=== PATIENT | male | born 1955 | race Caucasian/White ===

== ENCOUNTER 2020-03-08 12:25 | Inpatient (IN) | payer MEDICAID, OTHER ==
[~2020-03-08] VITALS: Ht 172.7 cm; Wt 62.5 kg
[2020-03-08 13:42] LABS: Basophils # (auto) 0.1 10 ^3/uL (0-0.2); Basophils % (auto) 0.4 % (0.0-2.0); Eosinophils # (auto) 0 10 ^3/uL (0-0.8); Hematocrit 50.5 % (41.0-53.0); Hemoglobin 16.6 g/dL (13.5-17.5); Lymphocytes % (auto) 3.9 % (10.0-50.0); Mean Corpuscular Hemoglobin 31.2 pg (28.0-32.0); Mean Corpuscular Hgb Conc. 32.8 g/dL (32.0-36.0); Mean Corpuscular Volume 94.9 fL (80.0-100.0); Monocytes # (auto) 1.8 10 ^3/uL (0-1.3); Monocytes % (auto) 6.7 % (0.0-12.0); Neutrophils # (auto) 23.7 10 ^3/uL (1.6-8.6); Platelet Count (auto) 72 10^3/uL (140-450); Red Blood Cells 5.32 10^6/uL (4.5-5.90); Red Cell Distribution Width 15.2 % (11.8-14.3); White Blood Cell 26.6 10^3/uL (4.4-10.8)
[2020-03-08 14:03] LABS: Albumin 2.4 g/dL (3.4-5.0); Calcium 8.6 mg/dL (8.5-10.1); Potassium 5.3 mmol/L (3.5-5.1)
[2020-03-08 14:10] LABS: BUN/Creatinine Ratio 35.4; Bilirubin, Total 2.1 mg/dL (0.2-1.0); Total Protein 6.6 g/dL (6.4-8.2)
[2020-03-08] MEDS ORDERED: methylPREDNISolone SOD SUCC 125 MG/2 ML VL IV ONE (14:15)
[2020-03-08] MEDS ORDERED: AZITHROMYCIN 500MG/ 250ML 250 ML IV ONE (14:15)
[2020-03-08] MEDS ORDERED: FUROSEMIDE 40 MG/4 ML VIAL IV ONE (15:30)
[2020-03-08] MEDS ORDERED: SODIUM CHLORIDE 0.9% 1,000 ML IV SCH (17:00)
[2020-03-08] MEDS ORDERED: NITROGLYCERIN 0.4 MG SL TAB SL PRN (17:00)
[2020-03-08] MEDS ORDERED: DOCUSATE CALCIUM 240 MG CAP PO PRN (17:00)
[2020-03-08] MEDS ORDERED: LORazepam 0.5 MG TAB PO PRN (17:00)
[2020-03-08] MEDS ORDERED: hydrALAZINE HCL 20 MG/ML VL IV PRN (17:00)
[2020-03-08] MEDS ORDERED: MORPHINE SULF INJ 2 MG/ML SYRINGE 1ML IV PRN (17:00)
[2020-03-08] MEDS ORDERED: ACETAMINOPHEN 500 MG TAB PO PRN (17:00)
[2020-03-08 17:57] LABS: Lactate Dehydrogenase 298 U/L (87-241)
[2020-03-08 18:02] LABS: CRP High Sensitivity > 19.0 mg/dL (< 0.3)
[2020-03-08] MEDS: PIPERACILLIN-TAZOB 3.375GM 100 ML IV SCH (18:07)
[2020-03-08 20:54] LABS: Urine Bacteria NONE SEEN /hpf (None Seen); Urine Blood Negative /uL (Negative); Urine Hyaline Cast MANY /lpf (0 - 2); Urine Specific Gravity 1.014 (1.001-1.035); Urine WBC 1 /hpf (0 - 3)
[2020-03-08 22:00] VITALS: BP 109/75
[2020-03-08] MEDS ORDERED: ALBUTEROL SULF HFA 90MCG INH 200DOSE IN SCH (22:00)
[2020-03-08] MEDS ORDERED: BUDESONIDE (INHALATION) 180 MCG IH IN SCH (22:00)
[2020-03-09] VITALS (7 sets, daily range): BP systolic 99–142; BP diastolic 70–94
[2020-03-09 00:11] LABS: Potassium 4.7 mmol/L (3.5-5.1)
[2020-03-09] MEDS: PIPERACILLIN-TAZOB 3.375GM 100 ML IV SCH ×5 (00:50→23:21)
--- NOTE | 2020-03-09 05:45 | NUR ---
Transfer from [facility] Telemetry/Med-Surg Unit CASEMICHAEL admitted to Telemetry unit after SBAR received from Will RN. Patient oriented to DON FUENTES RN primary RN, unit, room, bed, and unit policies regarding patient care and visiting hours. Patient now on continuous telemetry monitoring, tele box # 69 and telemetry reading on arrival to unit is sinus rhythm at 78 beats per minute with depressed T waves. Patient weighed by bedscale and encouraged to call if they need something. All questions and concerns addressed, patient verbalized understanding. Bed in lowest locked position, side rails up x2, call light within reach. Will round every hour and as needed and continue to monitor.
[2020-03-09 06:48] LABS: Basophils # (auto) 0 10 ^3/uL (0-0.2); Basophils % (auto) 0.1 % (0.0-2.0); Eosinophils # (auto) 0 10 ^3/uL (0-0.8); Lymphocytes % (auto) 4.8 % (10.0-50.0); Mean Corpuscular Hemoglobin 31.2 pg (28.0-32.0); Mean Corpuscular Hgb Conc. 33.2 g/dL (32.0-36.0)
[2020-03-09 06:51] LABS: Hematocrit 48.6 % (41.0-53.0); Hemoglobin 16.1 g/dL (13.5-17.5); Monocytes # (auto) 0.6 10 ^3/uL (0-1.3); Monocytes % (auto) 3.3 % (0.0-12.0); Neutrophils # (auto) 18.2 10 ^3/uL (1.6-8.6); Neutrophils % (auto) 91.8 % (37.0-80.0); Nucleated Red Blood Cells % 0.2 %; Platelet Count (auto) 66 10^3/uL (140-450); Red Blood Cells 5.16 10^6/uL (4.5-5.90); Red Cell Distribution Width 15.1 % (11.8-14.3); White Blood Cell 19.8 10^3/uL (4.4-10.8)
--- NOTE | 2020-03-09 07:10 | NUR ---
Patient lying in bed, eyes closed, respirations even and unlabored, appears asleep. Patient awakens to name and touch. No s/s of distress. Will continue to monitor.
[2020-03-09 07:30] LABS: Potassium 4.6 mmol/L (3.5-5.1)
[2020-03-09 07:45] LABS: BUN/Creatinine Ratio 40.5; Calcium 8.4 mg/dL (8.5-10.1)
--- NOTE | 2020-03-09 07:45 | NUR ---
Opening Shift Note Assumed care of patient, awake and alert bed is locked and in lowest position , bed rails up x2 call light is with in reach. No S/S of distress/SOB or pain. Instructed on POC and to call for assistance PRN, will continue to monitor for changes Q1hr and PRN.
[2020-03-09 07:48] LABS: Total Protein 5.6 g/dL (6.4-8.2)
[2020-03-09] MEDS ORDERED: ASCORBIC ACID 1,000 MG TAB PO SCH (10:00)
[2020-03-09] MEDS ORDERED: ENOXAPARIN SOD 40 MG/0.4 ML SYRINGE SC SCH ×2 (10:00)
[2020-03-09] MEDS ORDERED: CHOLECALCIFEROL (VITD3) 2,000 UNIT CAP PO SCH (10:00)
[2020-03-09] MEDS ORDERED: ZINC SULFATE 220mg CAP or TAB PO SCH (10:00)
[2020-03-09] MEDS: PANTOPRAZOLE 40 MG TAB PO SCH (10:49)
[2020-03-09] MEDS: ENOXAPARIN SOD 80 MG/0.8ML SYRINGE SC ONE ×2 (13:15→13:49)
[2020-03-09] MEDS ORDERED: SODIUM CHLORIDE 0.9% 1,000 ML IV ONE (13:15)
[2020-03-09] MEDS ORDERED: VANCOMYCIN PER PHARMACY 0 MG IV SCH (13:15)
[2020-03-09] MEDS ORDERED: IOHEXOL 350 MG/ML 100ML IJ ONE (13:22)
[2020-03-09] MEDS ORDERED: ENOXAPARIN SOD 80 MG/0.8ML SYRINGE SC ONE (14:00)
[2020-03-09] MEDS: VANCOMYCIN 1GM/250ML 250 ML IV ONE ×2 (15:00→16:40)
[2020-03-09] MEDS: Ensure Enlive Strawberry 8oz Bottle PO SCH (18:00)
--- NOTE | 2020-03-09 21:08 | NUR ---
Spoke with merchandise presentation manager hospitalist MARGOTH Hebert regarding patient's ordered Lovenox for extensive blood clots. Patient's current platelet level 66. Per REHAB RN, "leave [the order] like that" for tonight's dose and confirm order in AM with dayshift Hospitalist. Read back and verified, will implement as ordered and inform dayshift RN. Will continue to monitor patient.
[2020-03-09] MEDS ORDERED: ENOXAPARIN SOD 80 MG/0.8ML SYRINGE SC SCH (22:00)
[2020-03-09] MEDS: ACETAMINOPHEN 325 MG TAB PO PRN (23:21)
[2020-03-10 05:00] VITALS: BP 111/79
[2020-03-10] MEDS: VANCOMYCIN 1GM/250ML 250 ML IV SCH ×2 (05:16→19:31)
--- NOTE | 2020-03-10 05:30 | NUR ---
COVID swab collected as ordered and walked to lab by resource SUSAN Escobar. Patient tolerated well. Will continue care.
[2020-03-10 06:02] LABS: Eosinophils # (auto) 0 10 ^3/uL (0-0.8); Hemoglobin 13.8 g/dL (13.5-17.5); Lymphocytes # (auto) 0.9 10 ^3/uL (0.4-5.4); Lymphocytes % (auto) 3.9 % (10.0-50.0)
[2020-03-10 06:04] LABS: Basophils # (auto) 0.1 10 ^3/uL (0-0.2); Basophils % (auto) 0.3 % (0.0-2.0); Hematocrit 42.5 % (41.0-53.0); Mean Corpuscular Hemoglobin 30.7 pg (28.0-32.0); Mean Corpuscular Hgb Conc. 32.4 g/dL (32.0-36.0); Mean Corpuscular Volume 94.8 fL (80.0-100.0); Monocytes # (auto) 1.3 10 ^3/uL (0-1.3); Monocytes % (auto) 5.7 % (0.0-12.0); Neutrophils # (auto) 21.2 10 ^3/uL (1.6-8.6); Neutrophils % (auto) 90.1 % (37.0-80.0); Nucleated Red Blood Cells % 0.2 %; Platelet Count (auto) 60 10^3/uL (140-450); Red Blood Cells 4.49 10^6/uL (4.5-5.90); Red Cell Distribution Width 15.3 % (11.8-14.3); White Blood Cell 23.6 10^3/uL (4.4-10.8)
[2020-03-10 06:26] LABS: BUN/Creatinine Ratio 51.3; Calcium 8.1 mg/dL (8.5-10.1)
--- NOTE | 2020-03-10 06:37 | NUR ---
Patient lying in bed, eyes closed, respirations even and unlabored, appears asleep. Patient awakens to name and touch. No s/s of distress. Will endorse care to dayshift RN.
[2020-03-10] MEDS: PIPERACILLIN-TAZOB 3.375GM 100 ML IV SCH ×3 (06:40→18:48)
--- NOTE | 2020-03-10 07:45 | NUR ---
Opening Shift Note Assumed care of patient, awake and alert bed is locked and in lowest position , bed rails up x2 , call light is with in reach. No S/S of distress/SOB or pain. Instructed on POC and to call for assistance PRN, will continue to monitor for changes Q1hr and PRN.
[2020-03-10] MEDS: Ensure Enlive Strawberry 8oz Bottle PO SCH ×3 (08:30→18:48)
[2020-03-10 09:00] VITALS: BP 136/92
[2020-03-10] MEDS: PANTOPRAZOLE 40 MG TAB PO SCH (10:03)
[2020-03-10 12:30] VITALS: BP 114/78
[2020-03-10 17:00] VITALS: BP 113/76
[2020-03-10] MEDS: APIXABAN 5 MG TAB PO SCH (21:09)
[2020-03-10 21:36] VITALS: BP 109/74
[2020-03-11] MEDS: PIPERACILLIN-TAZOB 3.375GM 100 ML IV SCH ×4 (00:32→18:06)
[2020-03-11] MEDS: ACETAMINOPHEN 325 MG TAB PO PRN ×4 (03:01→22:42)
[2020-03-11 05:00] VITALS: BP 118/80
[2020-03-11 05:49] LABS: Eosinophils # (auto) 0 10 ^3/uL (0-0.8); Neutrophils # (auto) 14.4 10 ^3/uL (1.6-8.6); Platelet Count (auto) 63 10^3/uL (140-450)
[2020-03-11 05:51] LABS: Basophils # (auto) 0 10 ^3/uL (0-0.2); Basophils % (auto) 0.3 % (0.0-2.0); Hematocrit 41.5 % (41.0-53.0); Hemoglobin 13.8 g/dL (13.5-17.5); Lymphocytes # (auto) 1.6 10 ^3/uL (0.4-5.4); Lymphocytes % (auto) 9.4 % (10.0-50.0); Mean Corpuscular Hemoglobin 31.6 pg (28.0-32.0); Mean Corpuscular Hgb Conc. 33.3 g/dL (32.0-36.0); Mean Corpuscular Volume 94.7 fL (80.0-100.0); Monocytes % (auto) 5.6 % (0.0-12.0); Neutrophils % (auto) 84.7 % (37.0-80.0); Red Blood Cells 4.39 10^6/uL (4.5-5.90); Red Cell Distribution Width 15.2 % (11.8-14.3)
[2020-03-11 06:13] LABS: Albumin 1.9 g/dL (3.4-5.0); Calcium 8.2 mg/dL (8.5-10.1); Potassium 3.5 mmol/L (3.5-5.1)
[2020-03-11 06:17] LABS: BUN/Creatinine Ratio 42.7; Total Protein 5.3 g/dL (6.4-8.2)
--- NOTE | 2020-03-11 07:45 | NUR ---
Opening Shift Note Assumed care of patient, awake and alert , bed is locked and in lowest position , bed rails up x2 , call light is within reach . No S/S of distress/SOB or pain. Instructed on POC and to call for assistance PRN, will continue to monitor for changes Q1hr and PRN.
[2020-03-11] MEDS: Ensure Enlive Strawberry 8oz Bottle PO SCH ×3 (07:57→18:06)
[2020-03-11] MEDS: VANCOMYCIN 1GM/250ML 250 ML IV SCH ×2 (09:17→22:37)
[2020-03-11 09:28] VITALS: BP 103/67
[2020-03-11] MEDS: APIXABAN 5 MG TAB PO SCH ×3 (10:10→22:38)
[2020-03-11] MEDS: PANTOPRAZOLE 40 MG TAB PO SCH (10:10)
[2020-03-11 13:00] VITALS: BP 107/80
[2020-03-11] MEDS ORDERED: MULTIPLE VITAMINS W/ MINERALS TAB PO ONE (13:15)
--- NOTE | 2020-03-11 13:55 | NUR ---
re-assessment Per consult no insurance. Patient has been assessed by Dipak Reeder of [facility]. Patients medi-celso is secure. I have provided patient with resources for [facility], Dr. Hernandez, and [facility] urgent care for follow up visits. I have provided patient with a prescription card from community assistance program. Addendum: 03/11/20 at 1356 by Danuta Thornton Amended: Links added.
--- NOTE | 2020-03-11 16:14 | NUR ---
Assessment Patient is a 64-year-old male, who is alert and oriented. Patient cognitive abilities are intact. Patient states that he can do all ADLs and ambulates independently prior to admission to [facility]. Patient states that he is employed. Patient states that he rent a room and has a roommate. Patient stated that he has no contact with his estrange family. Patient stated that he does not have transportation for discharge. Patient stated that he has a friend (Cheikh Hernandezheather no known phone number) as his support system. Patient stated that he is not receptive on receiving Advance Directive forms. Discharge planning: SW will assist with providing taxi transportation to patient post discharge. Additional post discharge needs are not determined at this moment. Addendum: 03/11/20 at 1615 by SIDNEY MAGANA Amended: Links added.
[2020-03-11 17:00] VITALS: BP 125/77
--- NOTE | 2020-03-11 18:51 | NUR ---
CLOSING SHIFT NOTE ENDORSED CARE TO DEMOLITION HAMMER OPERATOR. Addendum: 03/11/20 at 1855 by Ashlee Gallegos RN DEMOLITION HAMMER OPERATOR RN
[2020-03-11 21:28] VITALS: BP 122/79
[2020-03-12] MEDS: PIPERACILLIN-TAZOB 3.375GM 100 ML IV SCH ×5 (00:44→23:55)
[2020-03-12 05:04] VITALS: BP 132/72
[2020-03-12 06:23] LABS: Basophils # (auto) 0.1 10 ^3/uL (0-0.2); Basophils % (auto) 0.3 % (0.0-2.0); Eosinophils # (auto) 0 10 ^3/uL (0-0.8); Eosinophils % (auto) 0.1 % (0.0-7.0); Hematocrit 42.2 % (41.0-53.0); Hemoglobin 13.9 g/dL (13.5-17.5); Lymphocytes # (auto) 1.3 10 ^3/uL (0.4-5.4); Lymphocytes % (auto) 8.4 % (10.0-50.0); Mean Corpuscular Hemoglobin 31.1 pg (28.0-32.0); Mean Corpuscular Hgb Conc. 32.8 g/dL (32.0-36.0); Mean Corpuscular Volume 94.6 fL (80.0-100.0); Monocytes # (auto) 0.7 10 ^3/uL (0-1.3); Monocytes % (auto) 4.4 % (0.0-12.0); Neutrophils # (auto) 13.4 10 ^3/uL (1.6-8.6); Neutrophils % (auto) 86.8 % (37.0-80.0); Nucleated Red Blood Cells % 0.1 %; Platelet Count (auto) 66 10^3/uL (140-450); Red Blood Cells 4.47 10^6/uL (4.5-5.90); White Blood Cell 15.4 10^3/uL (4.4-10.8)
[2020-03-12 06:43] LABS: BUN/Creatinine Ratio 43.8; Calcium 8.2 mg/dL (8.5-10.1); Potassium 3.5 mmol/L (3.5-5.1)
[2020-03-12 08:00] VITALS: BP 120/83
[2020-03-12] MEDS: Ensure Enlive Strawberry 8oz Bottle PO SCH ×3 (08:00→18:15)
--- NOTE | 2020-03-12 08:00 | NUR ---
Opening Shift Note Assumed care of patient, pt is awake and A&OX4. No S/S of distress/SOB or pain. Insructed on POC and to call for assist PRN, bed is locked and in lowest position, side rails up X2, and call light within reach. Upon morning assessment, purple discoloration on left all 5 toes noted and shared with primary nurse. Will continue to monitor for changes Q1hr and PRN.
--- NOTE | 2020-03-12 08:40 | NUR ---
Pagechaitanya Carpenter MD regarding pt's L foot status. Upon assessment, purple discoloration noted to all toes, decreased pedal pulse and edema 2+ noted. Killian MENDOSA. Will continue to monitor. Addendum: 03/12/20 at 0852 by HENRIK FATIMA RN RN MD carpenter back. Requested that we complete a doppler for vascular status. Doppler noted to have strong pulse to dorsalis pedis. Pulse site marked. Will continue to monitor.
[2020-03-12 09:00] VITALS: BP 120/83
--- NOTE | 2020-03-12 09:18 | NUR ---
Dr Brown at Bedside MD to see pt. New orders for Podiatry consult for L foot. further requests that we hold the eliquis in case of possible procedure. Will implement and continue to monitor.
[2020-03-12] MEDS ORDERED: APIXABAN 5 MG TAB PO SCH (09:30)
[2020-03-12] MEDS: PANTOPRAZOLE 40 MG TAB PO SCH (09:40)
[2020-03-12 09:59] LABS: INR 2.11 (0.9-1.15); Partial Thromboplastin Time 29.3 sec (23.0-31.2)
[2020-03-12] MEDS ORDERED: MULTIPLE VITAMINS W/ MINERALS TAB PO SCH (10:00)
--- NOTE | 2020-03-12 11:38 | NUR ---
Nutrition Assessment Est energy needs [id number] kcal (25-30 kcal/kg BW 60.1kg) Est protein needs 60-72g (1-1.2g/kg BW 60.1kg r/t severe hypoalb) Will monitor and reassess prn. Addendum: 03/12/20 at [address] Amended: Links added.
[2020-03-12] MEDS: FONDAPARINUX SODIUM 7.5 MG/0.6 ML INJ SC SCH (12:01)
--- NOTE | 2020-03-12 12:11 | NUR ---
Dr Abraham at Station Updated on pt's status. No new orders at this time. Will continue to monitor.
[2020-03-12 13:00] VITALS: BP 105/79
[2020-03-12] MEDS: VANCOMYCIN 1GM/250ML 250 ML IV SCH (13:02)
[2020-03-12 16:48] VITALS: BP 116/88
--- NOTE | 2020-03-12 19:40 | NUR ---
OPENING NOTE Received report from day shift RN. Patient is A&O X's 4 with no s/s of distress noted. Patient is on RA, O2 93%. respirations are even and unlabored. Educated patient on POC and to use call light when in need of assistance and before ambulating. Patient verbalized understanding. Patient's toes on left foot to about half way up the foot has purple discoloration- the discoloration was marked where it ended on foot. Pedal pulses are weak to palpate. Marked where pulses are at. Edema +3 present to bilat lower extremities. Patient reports sensation in bilat lower extremities are good and equal. Bed is in lowest/locked position with side rails up X's 2 and call light is within reach of patient. Bed alarm is on for safety. Will continue care. Educated patient to notify me of any changes to sensation/pain/ SOB. Patient verbalized understanding.
[2020-03-12 22:00] VITALS: BP 120/87
[2020-03-13] MEDS: VANCOMYCIN 1GM/250ML 250 ML IV SCH ×2 (01:03→12:36)
[2020-03-13 05:00] VITALS: BP 112/77
[2020-03-13] MEDS: PIPERACILLIN-TAZOB 3.375GM 100 ML IV SCH ×4 (05:32→23:34)
--- NOTE | 2020-03-13 07:44 | NUR ---
Opening Note Assumed pt care from NOC RN. Pt is a/ox4 with no s/s of distress or SOB. Pt is currently sitting upright in bed with no complaints at this time. Purple/blue discoloration still present to L foot. Reference line drawn last night for closely monitoring. Discussed POC with pt and pending Podiatry consult pending. Safety measures maintained with call light within reach, bed in lowest position and side rails up. Will continue to monitor.
[2020-03-13] MEDS: Ensure Enlive Strawberry 8oz Bottle PO SCH ×3 (08:35→17:35)
[2020-03-13 09:00] VITALS: BP 114/80
[2020-03-13] MEDS: PANTOPRAZOLE 40 MG TAB PO SCH (09:13)
[2020-03-13] MEDS: FONDAPARINUX SODIUM 7.5 MG/0.6 ML INJ SC SCH (09:55)
[2020-03-13 10:03] LABS: Basophils # (auto) 0.1 10 ^3/uL (0-0.2); Basophils % (auto) 0.5 % (0.0-2.0); Eosinophils # (auto) 0 10 ^3/uL (0-0.8); Eosinophils % (auto) 0.2 % (0.0-7.0); Hematocrit 43.2 % (41.0-53.0); Hemoglobin 14.1 g/dL (13.5-17.5); Lymphocytes # (auto) 1.5 10 ^3/uL (0.4-5.4); Lymphocytes % (auto) 9.2 % (10.0-50.0); Mean Corpuscular Hemoglobin 30.6 pg (28.0-32.0); Mean Corpuscular Hgb Conc. 32.6 g/dL (32.0-36.0); Mean Corpuscular Volume 94.1 fL (80.0-100.0); Monocytes # (auto) 0.7 10 ^3/uL (0-1.3); Monocytes % (auto) 4.3 % (0.0-12.0); Neutrophils # (auto) 13.8 10 ^3/uL (1.6-8.6); Neutrophils % (auto) 85.8 % (37.0-80.0); Nucleated Red Blood Cells % 0.1 %; Platelet Count (auto) 92 10^3/uL (140-450); Red Blood Cells 4.59 10^6/uL (4.5-5.90); Red Cell Distribution Width 15.4 % (11.8-14.3); White Blood Cell 16.1 10^3/uL (4.4-10.8)
[2020-03-13 10:19] LABS: INR 1.34 (0.9-1.15); Partial Thromboplastin Time 27.8 sec (23.0-31.2)
--- NOTE | 2020-03-13 10:40 | NUR ---
Dr Smith at Bedside MD to see pt for consult. Per MD's recommendation, pt would benefit from amputation. Notified MD of pt's DVT status and anticoagulation therapy. MD made aware.
--- NOTE | 2020-03-13 10:55 | NUR ---
IV Insertion and Removal 20G inserted to pt's L FA, one attempt made. Removal of 20G to pt's R FA, catheter removed fully intact. Site is asymptomatic.
[2020-03-13 13:00] VITALS: BP 129/86
[2020-03-13] MEDS: SILDENAFIL CITRATE 20 MG TAB PO SCH ×2 (13:27→20:41)
--- NOTE | 2020-03-13 14:29 | NUR ---
Pt refused PT tx x2 today, AM & PM. Addendum: 03/13/20 at 1429 by Michael Kim MILK DRIER Amended: Links added.
[2020-03-13 17:00] VITALS: BP 113/84
--- NOTE | 2020-03-13 19:15 | NUR ---
OPENING NOTE Patient is A&O X's 4 with no s/s of distress noted. Bed in low locked position, call light within reach, siderails up x2. Patient is on RA, O2 93%. respirations are even and unlabored. Educated patient on POC and to use call light when in need of assistance and before ambulating. Patient verbalized understanding. Patient's toes on left foot to about half way up the foot has purple discoloration. Pedal pulses are weak to palpate. Edema +2 present to bilat lower extremities. Patient reports sensation in bilat lower extremities are good and equal. Bed alarm on for safety. Will continue care. Educated patient to notify me of any changes to sensation/pain/ SOB. Patient verbalized understanding.
[2020-03-13 20:52] VITALS: BP 110/68
--- NOTE | 2020-03-13 21:30 | NUR ---
Patient denies any pain right now. no needs. will continue to educate and monitor patient.
[2020-03-13 22:01] VITALS: BP 100/69
--- NOTE | 2020-03-14 01:00 | NUR ---
Called lab for vancomycin trough result. not yet available. waiting for result before hanging vanco.
[2020-03-14] MEDS: VANCOMYCIN 1GM/250ML 250 ML IV SCH ×3 (01:18→21:00)
--- NOTE | 2020-03-14 04:43 | NUR ---
Rounds Patient denies any pain, no SOB and no signs of acute distress. Will continue to monitor patient.
[2020-03-14 05:00] VITALS: BP 114/72
[2020-03-14] MEDS: PIPERACILLIN-TAZOB 3.375GM 100 ML IV SCH ×3 (06:06→17:45)
--- NOTE | 2020-03-14 07:30 | NUR ---
Opening Shift Note Assumed care of patient, awake and alert. No S/S of distress/SOB or pain. Patient left foot is being monitored for redness. Instructed on POC and to call for assist PRN, will continue to monitor for changes Q1hr and PRN. Bed is locked and in lowest position. Call light within reach.
[2020-03-14] MEDS: SILDENAFIL CITRATE 20 MG TAB PO SCH (08:20)
[2020-03-14] MEDS: Ensure Enlive Strawberry 8oz Bottle PO SCH ×3 (08:21→17:45)
[2020-03-14 08:45] VITALS: BP 105/71
[2020-03-14] MEDS: FONDAPARINUX SODIUM 7.5 MG/0.6 ML INJ SC SCH (09:33)
[2020-03-14 10:05] LABS: Basophils # (auto) 0.1 10 ^3/uL (0-0.2); Eosinophils # (auto) 0 10 ^3/uL (0-0.8); Eosinophils % (auto) 0.2 % (0.0-7.0); Hemoglobin 13.1 g/dL (13.5-17.5); Lymphocytes # (auto) 1.1 10 ^3/uL (0.4-5.4); Lymphocytes % (auto) 7.7 % (10.0-50.0); Mean Corpuscular Hemoglobin 30.7 pg (28.0-32.0); Mean Corpuscular Hgb Conc. 32.8 g/dL (32.0-36.0); Mean Corpuscular Volume 93.5 fL (80.0-100.0); Monocytes # (auto) 0.9 10 ^3/uL (0-1.3); Neutrophils # (auto) 12.2 10 ^3/uL (1.6-8.6); Neutrophils % (auto) 85.1 % (37.0-80.0); Platelet Count (auto) 115 10^3/uL (140-450); Red Blood Cells 4.28 10^6/uL (4.5-5.90); White Blood Cell 14.3 10^3/uL (4.4-10.8)
[2020-03-14] MEDS: PANTOPRAZOLE 40 MG TAB PO SCH (10:08)
[2020-03-14 10:21] LABS: Calcium 8.1 mg/dL (8.5-10.1); Potassium 3.5 mmol/L (3.5-5.1)
[2020-03-14 10:23] LABS: BUN/Creatinine Ratio 23.7
[2020-03-14] MEDS ORDERED: MULTIPLE VITAMINS W/ MINERALS TAB PO ONE (11:30)
[2020-03-14] MEDS ORDERED: SILDENAFIL CITRATE 20 MG TAB PO SCH (11:30)
--- NOTE | 2020-03-14 11:41 | NUR ---
Pt refused PT tx. He responded to encouragement to participate in gentle therapeutic exercises by reiterating his refusal. Addendum: 03/14/20 at 1145 by Michael Kim PTA Amended: Links added.
[2020-03-14 13:00] VITALS: BP 99/69
[2020-03-14 16:36] VITALS: BP 102/65
--- NOTE | 2020-03-14 19:10 | NUR ---
Opening Shift Note Assumed care of patient, awake and alertx4. unlabored breathing, resting in bed. bed in low locked position, siderails upx4, No S/S of distress/SOB or pain. Instructed on POC and to call for assist PRN, will continue to monitor for changes Q1hr and PRN.
[2020-03-14] MEDS ORDERED: VANCOMYCIN 1GM/250ML 250 ML IV SCH (21:00)
[2020-03-14] MEDS: APIXABAN 5 MG TAB PO SCH (21:36)
[2020-03-14 22:00] VITALS: BP 106/71
[2020-03-14] MEDS ORDERED: APIXABAN 5 MG TAB PO SCH (22:00)
[2020-03-14] MEDS ORDERED: APIXABAN 2.5 MG TAB PO SCH (22:00)
[2020-03-15] MEDS: PIPERACILLIN-TAZOB 3.375GM 100 ML IV SCH ×2 (00:06→05:50)
[2020-03-15 05:00] VITALS: BP 114/67
--- NOTE | 2020-03-15 05:18 | NUR ---
PATIENT DENIES ANY PAIN AND NO NEEDS RIGHT NOW. WILL CONTINUE TO MONITOR PATIENT.
--- NOTE | 2020-03-15 06:35 | NUR ---
SPOKE WITH PHARMACIST TO ADJUST VANCOMYCIN SCHEDULE SO IT WON'T CONFLICT WITH ZOSYN TIME. PHARMACIST SAID SHE WILL ADJUST IT.
[2020-03-15] MEDS ORDERED: VANCOMYCIN 1GM/250ML 250 ML IV SCH ×2 (07:00→09:00)
--- NOTE | 2020-03-15 07:30 | NUR ---
Opening Shift Note Assumed care of patient, asleep in bed. No S/S of distress/SOB or pain. Patient will be continued to monitor for changes Q1hr and PRN. Bed is locked and in lowest position. Call light within reach.
[2020-03-15] MEDS ORDERED: PIPERACILLIN-TAZOB 3.375GM 100 ML IV SCH ×4 (08:00→12:00)
[2020-03-15] MEDS: Ensure Enlive Strawberry 8oz Bottle PO SCH ×2 (08:58→12:00)
[2020-03-15] MEDS: APIXABAN 5 MG TAB PO SCH (08:59)
[2020-03-15] MEDS: PANTOPRAZOLE 40 MG TAB PO SCH (08:59)
[2020-03-15 09:10] VITALS: BP 115/65
[2020-03-15] MEDS ORDERED: MULTIPLE VITAMINS W/ MINERALS TAB PO SCH (10:00)
--- NOTE | 2020-03-15 10:04 | NUR ---
Attempted PT treatment but pt adamantly refused. Pt states "I cannot walk because of this leg." Pt was educated that hop to gait pattern with FWW was an option. Pt was also educated that scope of practice of physical therapy is not limited to ambulation training. I requested that pt perform transfer training to ensure safe transfers with wheelchair while maintaining NWB for safe discharge home. Pt's response is, "I have a big ajay who can pick me up." Pt states that this friend is a neighbor and does not live with him. I asked pt what would happen if he needs to transfer from wheelchair to toilet when he is home alone and he states that he will manage. Pt requested to be removed from PT caseload. Will discharge pt, please re-order should pt need transfer training and be willing to participate in skilled PT services.
--- NOTE | 2020-03-15 10:30 | NUR ---
DR. AMINAH BURR AT BEDSIDE TO DISCUSS POC. PATIENT HAS PENDING DISCHARGE ONCE HE OBTAINS WHEELCHAIR. STILL AWAITING FRIEND TO BRING IN DOCUMENTS FOR PATIENT TO QUALIFY FOR MEDICAL. PATIENT MEDICATION WILL BE CALLED IN TO [facility]. WILL CONTINUE TO MONITOR PATIENT.
[2020-03-15] MEDS ORDERED: LEVO750T64 PO (11:40)
[2020-03-15] MEDS ORDERED: APIX5TAB PO (11:40)
[2020-03-15 12:34] VITALS: BP 101/62
[2020-03-15 13:53] VITALS: BP 99/70
--- NOTE | 2020-03-15 13:55 | NUR ---
Nutrition Followup Note Wt 62.5 kg Pt was sleeping with no family by bedside. per records pt with PE. pt with no distress noted currently on regular diet with adequate PO of 75% x4 per RN doc along with ensure enlive TID Est energy needs [id number] kcal (25-30 kcal/kg BW 60.1kg) Est protein needs 60-72g (1-1.2g/kg BW 60.1kg r/t severe hypoalb) Will monitor and reassess prn. Labs: CA 8.1 L. rest lab wnl BM: Pt had 1 BM today per Rn note Skin: BS 20 low risk,full details in animal care specialist note PES: Altered nutrition related lab values aeb elevated BUN, severe hypoalb r/t current medical condition Comments: Will continue to monitor PO intake, skin status. F/u mod 3-5 days Rec: 1) refer to [employer] electric gas appliances demonstrator on DC 2) continue current plan of care
--- NOTE | 2020-03-15 14:48 | NUR ---
DISCHARGE PATIENT GIVEN DISCHARGE PAPERWORK, ALL QUESTIONS AND CONCERNS ANSWERED. PRESCRIPTIONS FILLED BY [facility]. VERIFIED PRESCRIPTIONS WITH [facility] PATIENT WILL BEADWORKER ON HIS WAY OUT WHEN DISCHARGED. PATIENT WHEELCHAIR AT BEDSIDE, PATIENT WILL TAKE WHEELCHAIR HOME WHEN DISCHARGED. PATIENT HAS FOLLOW UP APPOINTMENT WITH DISCHARGE CLINIC. PATIENT TELEMONITOR REMOVED AND SENT TO ICU HEART LAB. PATIENT WILL BE PICKED UP BY FRIEND. IV removal IV DC'd with clean sterile technique, catheter fully intact. Pressure dressing applied to site. Patient tolerated well.
[2020-03-17] MEDS ORDERED: APIXABAN 5 MG TAB PO SCH (22:00)
[2020-03-19] MEDS ORDERED: APIXABAN 5 MG TAB PO SCH (22:00)
== END 2020-03-15 14:51 | disposition home or self-care (01) | DRG 720 ==
LOC: ER 12:25 → EDBD 12:25 → TELE 12:26 → TELE-EAST 20:20 → TELE-WESTW 03-09 05:39
PROVIDERS: ADMIT Family Medicine; ATTEND Internal Medicine
DX: A41.9 Sepsis, unspecified organism (principal); E43 Unspecified severe protein-calorie malnutrition; I26.99 Other pulmonary embolism without acute cor pulmonale; J18.9 Pneumonia, unspecified organism; D68.59 Other primary thrombophilia; E87.1 Hypo-osmolality and hyponatremia; I31.3 Pericardial effusion (noninflammatory); I96 Gangrene, not elsewhere classified; R64 Cachexia; Z66 Do not resuscitate; D69.6 Thrombocytopenia, unspecified; E03.9 Hypothyroidism, unspecified; E78.5 Hyperlipidemia, unspecified; E87.5 Hyperkalemia; F17.210 Nicotine dependence, cigarettes, uncomplicated; I27.21 Secondary pulmonary arterial hypertension; I27.24 Chronic thromboembolic pulmonary hypertension; I50.9 Heart failure, unspecified; J43.9 Emphysema, unspecified; M71.20 Synovial cyst of popliteal space [Baker], unspecified knee; N28.9 Disorder of kidney and ureter, unspecified; Z20.828 Contact with and (suspected) exposure to other viral communicable diseases; Z91.19 Patient's noncompliance with other medical treatment and regimen; I70.0 Atherosclerosis of aorta; R94.6 Abnormal results of thyroid function studies; Z68.25 Body mass index [BMI] 25.0-25.9, adult; I82.413 Acute embolism and thrombosis of femoral vein, bilateral; I27.82 Chronic pulmonary embolism
CPT/HCPCS: 36415; 71045; 71275; 80048; 80051; 80053; 80202; 81001; 82565; 82728; 83605; 83615; 83880; 84443; 84484; 85025; 85379; 85610; 85730; 86141; 86738; 87040; 87081; 87086; 87278; 87426; 93005; 93306; 93925; 93970; 96361; 96365; 96367; 96375; G0378; J2543

== ENCOUNTER → 2020-03-26 | Emergency (ER) | payer SELFPAY ==
[~2020-03-26] VITALS: Ht 175.3 cm; Wt 72.6 kg
[~2020-03-26] MED LIST: APIX5TAB PO; DOXYCYCLINE 100MG/250ML 250 ML IV ONE; DexAMETHasone SOD PHOS 10MG/1ML VIAL INJ IV ONE; FUROSEMIDE 100 MG/10ML VIAL IV ONE; LEVO750T64 PO; MORPHINE SULF INJ 2 MG/ML SYRINGE 1ML IV PRN; NITROGLYCERIN 0.4 MG SL TAB SL PRN
[2020-03-26 15:43] VITALS: BP 150/93
[2020-03-26 17:01] LABS: Basophils # (auto) 0 10 ^3/uL (0-0.2); Basophils % (auto) 0.3 % (0.0-2.0); Eosinophils # (auto) 0 10 ^3/uL (0-0.8); Eosinophils % (auto) 0.4 % (0.0-7.0); Hematocrit 44.4 % (41.0-53.0); Hemoglobin 14.5 g/dL (13.5-17.5); Lymphocytes # (auto) 2.1 10 ^3/uL (0.4-5.4); Lymphocytes % (auto) 19.8 % (10.0-50.0); Mean Corpuscular Hemoglobin 30.3 pg (28.0-32.0); Mean Corpuscular Hgb Conc. 32.7 g/dL (32.0-36.0); Mean Corpuscular Volume 92.6 fL (80.0-100.0); Monocytes % (auto) 9.5 % (0.0-12.0); Neutrophils # (auto) 7.4 10 ^3/uL (1.6-8.6); Nucleated Red Blood Cells % 0.1 %; Platelet Count (auto) 183 10^3/uL (140-450); Red Blood Cells 4.79 10^6/uL (4.5-5.90); Red Cell Distribution Width 15.8 % (11.8-14.3); White Blood Cell 10.6 10^3/uL (4.4-10.8)
[2020-03-26 17:05] LABS: Albumin 2.4 g/dL (3.4-5.0); BUN/Creatinine Ratio 20.5; Potassium 3.8 mmol/L (3.5-5.1)
[2020-03-26 17:08] LABS: Bilirubin, Total 0.9 mg/dL (0.2-1.0); Total Protein 7.1 g/dL (6.4-8.2)
== END | disposition home or self-care (01) ==
LOC: EDUNIT# 14:49 → EDBD 14:55 → ER 14:55
DX: J18.8 Other pneumonia, unspecified organism (principal)
CPT/HCPCS: 36415; 71045; 80053; 85025; 85379; 93005; 99285; J1100

== ENCOUNTER 2020-04-02 12:16 | Inpatient (IN) | payer MEDICAID, OTHER ==
[~2020-04-02] VITALS: Ht 177.8 cm; Wt 62.2 kg
[2020-04-02] MEDS: VANCOMYCIN 750mg/250ml 250 ML IV SCH (06:00)
[~2020-04-02 12:16] MED LIST changes: -DOXYCYCLINE 100MG/250ML 250 ML IV ONE; -DexAMETHasone SOD PHOS 10MG/1ML VIAL INJ IV ONE; -FUROSEMIDE 100 MG/10ML VIAL IV ONE; -MORPHINE SULF INJ 2 MG/ML SYRINGE 1ML IV PRN; -NITROGLYCERIN 0.4 MG SL TAB SL PRN
[2020-04-02 15:42] LABS: Basophils # (auto) 0.1 10 ^3/uL (0-0.2); Basophils % (auto) 0.4 % (0.0-2.0); Eosinophils # (auto) 0 10 ^3/uL (0-0.8); Eosinophils % (auto) 0.1 % (0.0-7.0); Hematocrit 40.2 % (41.0-53.0); Hemoglobin 13.1 g/dL (13.5-17.5); Lymphocytes # (auto) 2.1 10 ^3/uL (0.4-5.4); Lymphocytes % (auto) 16.1 % (10.0-50.0); Mean Corpuscular Hemoglobin 30.1 pg (28.0-32.0); Mean Corpuscular Hgb Conc. 32.6 g/dL (32.0-36.0); Mean Corpuscular Volume 92.1 fL (80.0-100.0); Monocytes # (auto) 0.8 10 ^3/uL (0-1.3); Monocytes % (auto) 6.2 % (0.0-12.0); Neutrophils # (auto) 10.3 10 ^3/uL (1.6-8.6); Neutrophils % (auto) 77.2 % (37.0-80.0); Nucleated Red Blood Cells % 0.1 %; Platelet Count (auto) 72 10^3/uL (140-450); Red Blood Cells 4.37 10^6/uL (4.5-5.90); Red Cell Distribution Width 16.3 % (11.8-14.3); White Blood Cell 13.3 10^3/uL (4.4-10.8)
[2020-04-02 15:57] LABS: BUN/Creatinine Ratio 13.1; Calcium 8.1 mg/dL (8.5-10.1); Potassium 3.1 mmol/L (3.5-5.1)
[2020-04-02 16:01] LABS: Albumin 2.1 g/dL (3.4-5.0); Bilirubin, Total 1.1 mg/dL (0.2-1.0); Total Protein 6.2 g/dL (6.4-8.2)
[2020-04-02] MEDS ORDERED: PIPERACILLIN-TAZOB 3.375GM 100 ML IV ONE (16:15)
[2020-04-02] MEDS ORDERED: CLINDAMYCIN 600MG IV 50 ML IV ONE (16:15)
[2020-04-02 17:59] LABS: INR 1.33 (0.9-1.15)
[2020-04-02] MEDS ORDERED: NITROGLYCERIN 0.4 MG SL TAB SL PRN (18:45)
[2020-04-02] MEDS ORDERED: MORPHINE SULF INJ 2 MG/ML SYRINGE 1ML IV PRN (18:45)
[2020-04-02] MEDS ORDERED: ONDANSETRON HCL 4 MG/2 ML VIAL IV PRN (18:45)
[2020-04-02] MEDS ORDERED: ACETAMINOPHEN 500 MG TAB PO PRN ×2 (18:45)
[2020-04-02] MEDS ORDERED: VANCOMYCIN PER PHARMACY 0 MG IV SCH (18:45)
[2020-04-02] MEDS ORDERED: D5W/SOD CHL 0.9%/KCL 40MEQ 1,000 ML IV ONE (19:00)
[2020-04-02 19:09] LABS: Magnesium 2.1 mg/dL (1.6-2.6)
[2020-04-02] MEDS: PIPERACILLIN-TAZOB 3.375GM 100 ML IV SCH (19:11)
[2020-04-02] MEDS ORDERED: ASCORBIC ACID 1,000 MG TAB PO ONE (19:15)
[2020-04-02] MEDS ORDERED: ZINC SULFATE 220mg CAP or TAB PO ONE (19:15)
[2020-04-02] MEDS ORDERED: CHOLECALCIFEROL (VITD3) 2,000 UNIT CAP PO ONE (19:15)
[2020-04-02 19:17] LABS: CRP High Sensitivity 10.1 mg/dL (< 0.3)
[2020-04-02] MEDS: ALBUTEROL SULF HFA 90MCG INH 200DOSE IN SCH (22:00)
[2020-04-02] MEDS: APIXABAN 5 MG TAB PO SCH (22:00)
[2020-04-03] MEDS: VANCOMYCIN 750mg/250ml 250 ML IV SCH ×3 (05:00→21:00)
[2020-04-03 05:07] LABS: Basophils # (auto) 0 10 ^3/uL (0-0.2); Basophils % (auto) 0.2 % (0.0-2.0); Eosinophils # (auto) 0 10 ^3/uL (0-0.8); Eosinophils % (auto) 0.4 % (0.0-7.0); Hemoglobin 13.1 g/dL (13.5-17.5); Lymphocytes # (auto) 2.1 10 ^3/uL (0.4-5.4); Lymphocytes % (auto) 18.8 % (10.0-50.0); Mean Corpuscular Hemoglobin 29.3 pg (28.0-32.0); Mean Corpuscular Hgb Conc. 31.9 g/dL (32.0-36.0); Mean Corpuscular Volume 91.7 fL (80.0-100.0); Monocytes # (auto) 0.8 10 ^3/uL (0-1.3); Monocytes % (auto) 7.3 % (0.0-12.0); Neutrophils # (auto) 8.4 10 ^3/uL (1.6-8.6); Neutrophils % (auto) 73.3 % (37.0-80.0); Nucleated Red Blood Cells % 0.2 %; Platelet Count (auto) 75 10^3/uL (140-450); Red Blood Cells 4.47 10^6/uL (4.5-5.90); Red Cell Distribution Width 16.2 % (11.8-14.3); White Blood Cell 11.4 10^3/uL (4.4-10.8)
[2020-04-03 05:29] LABS: Albumin 2.1 g/dL (3.4-5.0); Calcium 8.2 mg/dL (8.5-10.1); Potassium 3.3 mmol/L (3.5-5.1)
[2020-04-03 05:34] LABS: BUN/Creatinine Ratio 16.7; Bilirubin, Total 1.2 mg/dL (0.2-1.0); Total Protein 5.8 g/dL (6.4-8.2)
[2020-04-03] MEDS: ALBUTEROL SULF HFA 90MCG INH 200DOSE IN SCH ×2 (06:00→14:00)
[2020-04-03] MEDS: PIPERACILLIN-TAZOB 3.375GM 100 ML IV SCH ×4 (06:56→21:43)
[2020-04-03] MEDS: ZINC SULFATE 220mg CAP or TAB PO SCH (10:00)
[2020-04-03] MEDS: FAMOTIDINE 20 MG TAB PO SCH (10:00)
[2020-04-03] MEDS: APIXABAN 5 MG TAB PO SCH (10:00)
[2020-04-03] MEDS: CHOLECALCIFEROL (VITD3) 2,000 UNIT CAP PO SCH (10:00)
[2020-04-03] MEDS: ASCORBIC ACID 1,000 MG TAB PO SCH (10:00)
[2020-04-03] MEDS: Ensure Enlive Strawberry 8oz Bottle PO SCH (18:22)
[2020-04-03] MEDS: ENOXAPARIN SOD 100 MG/1 ML SYRINGE SC SCH (22:00)
[2020-04-04] MEDS: PIPERACILLIN-TAZOB 3.375GM 100 ML IV SCH ×4 (01:11→20:48)
[2020-04-04 06:04] LABS: Basophils # (auto) 0 10 ^3/uL (0-0.2); Basophils % (auto) 0.4 % (0.0-2.0); Eosinophils # (auto) 0 10 ^3/uL (0-0.8); Eosinophils % (auto) 0.2 % (0.0-7.0); Hematocrit 42.5 % (41.0-53.0); Hemoglobin 13.7 g/dL (13.5-17.5); Lymphocytes # (auto) 2.3 10 ^3/uL (0.4-5.4); Lymphocytes % (auto) 18.1 % (10.0-50.0); Mean Corpuscular Hemoglobin 29.8 pg (28.0-32.0); Mean Corpuscular Hgb Conc. 32.3 g/dL (32.0-36.0); Mean Corpuscular Volume 92.2 fL (80.0-100.0); Monocytes # (auto) 0.9 10 ^3/uL (0-1.3); Monocytes % (auto) 7.6 % (0.0-12.0); Neutrophils # (auto) 9.2 10 ^3/uL (1.6-8.6); Neutrophils % (auto) 73.7 % (37.0-80.0); Nucleated Red Blood Cells % 0.1 %; Platelet Count (auto) 91 10^3/uL (140-450); Red Blood Cells 4.61 10^6/uL (4.5-5.90); Red Cell Distribution Width 16.6 % (11.8-14.3); White Blood Cell 12.5 10^3/uL (4.4-10.8)
[2020-04-04 06:12] LABS: Calcium 8.2 mg/dL (8.5-10.1); Potassium 3.1 mmol/L (3.5-5.1)
[2020-04-04 06:16] LABS: BUN/Creatinine Ratio 11.5
[2020-04-04] MEDS: ENOXAPARIN SOD 100 MG/1 ML SYRINGE SC SCH (10:00)
[2020-04-04] MEDS: CHOLECALCIFEROL (VITD3) 2,000 UNIT CAP PO SCH (10:00)
[2020-04-04] MEDS: ASCORBIC ACID 1,000 MG TAB PO SCH (10:00)
[2020-04-04] MEDS: ZINC SULFATE 220mg CAP or TAB PO SCH (10:06)
[2020-04-04] MEDS: Ensure Enlive Strawberry 8oz Bottle PO SCH ×3 (10:06→18:58)
[2020-04-04] MEDS: FAMOTIDINE 20 MG TAB PO SCH (10:07)
[2020-04-04] MEDS: VANCOMYCIN 750mg/250ml 250 ML IV SCH ×2 (10:21→18:40)
[2020-04-04] MEDS: ENOXAPARIN SOD 60 MG/0.6 ML SYRINGE SC SCH (22:50)
[2020-04-05] MEDS: VANCOMYCIN 750mg/250ml 250 ML IV SCH ×3 (01:32→17:15)
[2020-04-05 01:37] VITALS: BP 128/81
[2020-04-05] MEDS: MORPHINE SULF INJ 2 MG/ML SYRINGE 1ML IV PRN ×2 (01:54→20:53)
[2020-04-05 02:11] VITALS: BP 128/81
[2020-04-05 05:00] VITALS: BP_SYST 112; BP_SYST 122; BP_DIAS 77; BP_DIAS 88
[2020-04-05] MEDS: PIPERACILLIN-TAZOB 3.375GM 100 ML IV SCH ×3 (05:02→18:26)
[2020-04-05] MEDS: ZINC SULFATE 220mg CAP or TAB PO SCH (07:55)
[2020-04-05] MEDS: ASCORBIC ACID 1,000 MG TAB PO SCH (07:55)
[2020-04-05] MEDS: CHOLECALCIFEROL (VITD3) 2,000 UNIT CAP PO SCH (07:56)
[2020-04-05 08:10] LABS: Basophils # (auto) 0.1 10 ^3/uL (0-0.2); Basophils % (auto) 0.6 % (0.0-2.0); Eosinophils # (auto) 0 10 ^3/uL (0-0.8); Eosinophils % (auto) 0.3 % (0.0-7.0); Hematocrit 37.8 % (41.0-53.0); Hemoglobin 12.2 g/dL (13.5-17.5); Lymphocytes # (auto) 3.1 10 ^3/uL (0.4-5.4); Mean Corpuscular Hemoglobin 29.2 pg (28.0-32.0); Mean Corpuscular Hgb Conc. 32.3 g/dL (32.0-36.0); Mean Corpuscular Volume 90.6 fL (80.0-100.0); Monocytes # (auto) 0.8 10 ^3/uL (0-1.3); Monocytes % (auto) 6.1 % (0.0-12.0); Neutrophils # (auto) 9.4 10 ^3/uL (1.6-8.6); Platelet Count (auto) 92 10^3/uL (140-450); Red Blood Cells 4.18 10^6/uL (4.5-5.90); Red Cell Distribution Width 16.6 % (11.8-14.3); White Blood Cell 13.4 10^3/uL (4.4-10.8)
[2020-04-05 08:36] LABS: BUN/Creatinine Ratio 20.8; Potassium 3.4 mmol/L (3.5-5.1)
[2020-04-05 09:00] VITALS: BP 110/80
[2020-04-05] MEDS ORDERED: POTASSIUM CHL 20 Meq TABLET PO ONE (11:15)
[2020-04-05] MEDS: Ensure Enlive Strawberry 8oz Bottle PO SCH ×3 (11:46→18:16)
[2020-04-05] MEDS: ENOXAPARIN SOD 60 MG/0.6 ML SYRINGE SC SCH ×2 (11:47→22:00)
[2020-04-05] MEDS: FAMOTIDINE 20 MG TAB PO SCH (11:47)
[2020-04-05 13:00] VITALS: BP 101/73
[2020-04-05 17:30] VITALS: BP 127/82
[2020-04-06] MEDS: PIPERACILLIN-TAZOB 3.375GM 100 ML IV SCH ×5 (02:10→23:24)
[2020-04-06] MEDS: VANCOMYCIN 750mg/250ml 250 ML IV SCH ×3 (02:10→17:31)
[2020-04-06 05:00] VITALS: BP 134/90
[2020-04-06] MEDS: CHOLECALCIFEROL (VITD3) 2,000 UNIT CAP PO SCH (07:20)
[2020-04-06] MEDS: ASCORBIC ACID 1,000 MG TAB PO SCH (07:20)
[2020-04-06 08:06] LABS: Basophils # (auto) 0 10 ^3/uL (0-0.2); Basophils % (auto) 0.2 % (0.0-2.0); Eosinophils # (auto) 0.1 10 ^3/uL (0-0.8); Eosinophils % (auto) 0.5 % (0.0-7.0); Hematocrit 36.5 % (41.0-53.0); Hemoglobin 11.6 g/dL (13.5-17.5); Lymphocytes # (auto) 2.9 10 ^3/uL (0.4-5.4); Lymphocytes % (auto) 21.3 % (10.0-50.0); Mean Corpuscular Hemoglobin 28.9 pg (28.0-32.0); Mean Corpuscular Hgb Conc. 31.8 g/dL (32.0-36.0); Mean Corpuscular Volume 90.9 fL (80.0-100.0); Monocytes # (auto) 0.8 10 ^3/uL (0-1.3); Neutrophils # (auto) 9.7 10 ^3/uL (1.6-8.6); Nucleated Red Blood Cells % 0.1 %; Platelet Count (auto) 98 10^3/uL (140-450); Red Blood Cells 4.01 10^6/uL (4.5-5.90); Red Cell Distribution Width 16.3 % (11.8-14.3); White Blood Cell 13.5 10^3/uL (4.4-10.8)
[2020-04-06 08:26] LABS: INR 1.15 (0.9-1.15); Partial Thromboplastin Time 27.7 sec (23.0-31.2)
[2020-04-06 08:31] LABS: Potassium 3.4 mmol/L (3.5-5.1)
[2020-04-06 08:41] LABS: BUN/Creatinine Ratio 19.4; Calcium 7.9 mg/dL (8.5-10.1)
[2020-04-06 09:00] VITALS: BP 118/75
[2020-04-06 10:22] LABS: Magnesium 2.2 mg/dL (1.6-2.6); Phosphorus 2.7 mg/dL (2.5-4.90)
[2020-04-06] MEDS: FAMOTIDINE 20 MG TAB PO SCH (10:22)
[2020-04-06] MEDS: POTASSIUM CHL 20 Meq TABLET PO SCH (10:23)
[2020-04-06] MEDS: ENOXAPARIN SOD 60 MG/0.6 ML SYRINGE SC SCH ×2 (10:23→21:17)
[2020-04-06] MEDS: Ensure Enlive Strawberry 8oz Bottle PO SCH ×3 (10:23→17:58)
[2020-04-06] MEDS: HYDROcodone-ACET 5/325MG TAB PO PRN (10:31)
[2020-04-06 12:58] VITALS: BP 95/54
[2020-04-06 17:00] VITALS: BP 132/62
[2020-04-06 21:45] VITALS: BP 115/79
[2020-04-07] MEDS: VANCOMYCIN 750mg/250ml 250 ML IV SCH ×3 (01:49→19:52)
[2020-04-07 04:49] LABS: Basophils # (auto) 0.1 10 ^3/uL (0-0.2); Basophils % (auto) 0.5 % (0.0-2.0); Eosinophils # (auto) 0.1 10 ^3/uL (0-0.8); Eosinophils % (auto) 0.5 % (0.0-7.0); Hematocrit 36.9 % (41.0-53.0); Lymphocytes # (auto) 3.1 10 ^3/uL (0.4-5.4); Lymphocytes % (auto) 21.9 % (10.0-50.0); Mean Corpuscular Hemoglobin 29.5 pg (28.0-32.0); Mean Corpuscular Hgb Conc. 32.6 g/dL (32.0-36.0); Mean Corpuscular Volume 90.6 fL (80.0-100.0); Monocytes % (auto) 7.2 % (0.0-12.0); Neutrophils # (auto) 9.9 10 ^3/uL (1.6-8.6); Neutrophils % (auto) 69.9 % (37.0-80.0); Nucleated Red Blood Cells % 0.1 %; Platelet Count (auto) 119 10^3/uL (140-450); Red Blood Cells 4.07 10^6/uL (4.5-5.90); Red Cell Distribution Width 16.3 % (11.8-14.3); White Blood Cell 14.1 10^3/uL (4.4-10.8)
[2020-04-07 05:07] LABS: BUN/Creatinine Ratio 22.1; Calcium 8.1 mg/dL (8.5-10.1); Potassium 3.7 mmol/L (3.5-5.1)
[2020-04-07 05:20] VITALS: BP 126/89
[2020-04-07] MEDS: PIPERACILLIN-TAZOB 3.375GM 100 ML IV SCH ×4 (05:28→23:25)
[2020-04-07] MEDS: HYDROcodone-ACET 5/325MG TAB PO PRN ×2 (05:34→21:58)
[2020-04-07 08:00] VITALS: BP 103/72
[2020-04-07] MEDS: Ensure Enlive Strawberry 8oz Bottle PO SCH ×3 (08:00→18:00)
[2020-04-07] MEDS: FAMOTIDINE 20 MG TAB PO SCH (10:16)
[2020-04-07] MEDS: POTASSIUM CHL 20 Meq TABLET PO SCH (10:17)
[2020-04-07 12:00] VITALS: BP 105/67
[2020-04-07 16:00] VITALS: BP 111/84
[2020-04-07 23:05] VITALS: BP 119/80
[2020-04-08] VITALS (7 sets, daily range): BP systolic 111–126; BP diastolic 75–88
[2020-04-08] MEDS: PIPERACILLIN-TAZOB 3.375GM 100 ML IV SCH ×3 (05:34→18:50)
[2020-04-08] MEDS: VANCOMYCIN 750mg/250ml 250 ML IV SCH ×2 (05:41→17:00)
[2020-04-08 07:12] LABS: Basophils # (auto) 0 10 ^3/uL (0-0.2)
[2020-04-08 07:20] LABS: Basophils % (auto) 0.4 % (0.0-2.0); Eosinophils # (auto) 0.1 10 ^3/uL (0-0.8); Eosinophils % (auto) 0.6 % (0.0-7.0); Hematocrit 40.6 % (41.0-53.0); Hemoglobin 12.1 g/dL (13.5-17.5); Lymphocytes # (auto) 2.1 10 ^3/uL (0.4-5.4); Lymphocytes % (auto) 19.5 % (10.0-50.0); Mean Corpuscular Hemoglobin 29.5 pg (28.0-32.0); Mean Corpuscular Hgb Conc. 29.7 g/dL (32.0-36.0); Mean Corpuscular Volume 99.4 fL (80.0-100.0); Monocytes # (auto) 0.7 10 ^3/uL (0-1.3); Monocytes % (auto) 6.2 % (0.0-12.0); Neutrophils # (auto) 8.1 10 ^3/uL (1.6-8.6); Neutrophils % (auto) 73.3 % (37.0-80.0); Nucleated Red Blood Cells % 0.2 %; Platelet Count (auto) 104 10^3/uL (140-450); Red Blood Cells 4.08 10^6/uL (4.5-5.90); Red Cell Distribution Width 18.2 % (11.8-14.3)
[2020-04-08 07:25] LABS: INR 1.32 (0.9-1.15); Partial Thromboplastin Time 22.2 sec (23.0-31.2)
[2020-04-08 07:40] LABS: Potassium 4.8 mmol/L (3.5-5.1)
[2020-04-08 07:46] LABS: BUN/Creatinine Ratio 20.6; Calcium 8.1 mg/dL (8.5-10.1)
[2020-04-08] MEDS: Ensure Enlive Strawberry 8oz Bottle PO SCH ×3 (08:05→18:50)
[2020-04-08] MEDS: FAMOTIDINE 20 MG TAB PO SCH (09:05)
[2020-04-08] MEDS: POTASSIUM CHL 20 Meq TABLET PO SCH (09:05)
[2020-04-08] MEDS ORDERED: TETRACAINE 1% INJ 2 ML VIAL IJ ONE (09:59)
[2020-04-08] MEDS ORDERED: POVIDONE IODINE 10 % TOPICAL OINT 30GM TOP ONE (09:59)
[2020-04-08] MEDS ORDERED: fentaNYL CITRATE 100 MCG/2 ML VL ONE (11:00)
[2020-04-08] MEDS ORDERED: MIDAZOLAM HCL 1MG/1ML-2 ML VIAL ONE (11:00)
[2020-04-08] MEDS ORDERED: DexAMETHasone SOD PHOS 10MG/1ML VIAL INJ ONE (11:50)
[2020-04-08] MEDS ORDERED: PROPOFOL 10 MG/ML 20 ML IV ONE (11:59)
[2020-04-08] MEDS ORDERED: MIDAZOLAM HCL 1MG/1ML-2 ML VIAL IV PRN (12:30)
[2020-04-08] MEDS ORDERED: ePHEDrine SULFATE 50 MG/ML AMP IV PRN (12:30)
[2020-04-08] MEDS ORDERED: LABETALOL HCL 5 MG/ML 4ML SYRINGE IV PRN (12:30)
[2020-04-08] MEDS ORDERED: ONDANSETRON HCL 4 MG/2 ML VIAL IV PRN (12:30)
[2020-04-08] MEDS ORDERED: MORPHINE SULFATE 4 MG/ML SYR/VIAL IV PRN (12:30)
[2020-04-08] MEDS ORDERED: ALBUTEROL SULF 2.5 MG/0.5ML(0.5%) NEB SOLN NEB ONE (13:00)
[2020-04-08] MEDS ORDERED: IPRATROPIUM BROM 0.5 MG/2.5ML INH SOL NEB ONE (13:00)
[2020-04-08] MEDS: ALBUTEROL SULF 2.5 MG/0.5ML(0.5%) NEB SOLN NEB SCH ×2 (18:00→21:55)
[2020-04-08] MEDS: IPRATROPIUM BROM 0.5 MG/2.5ML INH SOL NEB SCH ×2 (18:00→21:55)
[2020-04-08] MEDS: HYDROcodone-ACET 5/325MG TAB PO PRN (19:05)
[2020-04-08] MEDS: BUDESONIDE (INHALATION) 0.5 MG/2 ML NEB NEB SCH (21:55)
[2020-04-09] MEDS: PIPERACILLIN-TAZOB 3.375GM 100 ML IV SCH ×4 (00:35→17:30)
[2020-04-09] MEDS: VANCOMYCIN 750mg/250ml 250 ML IV SCH ×3 (02:08→22:41)
[2020-04-09 05:00] VITALS: BP 125/81
[2020-04-09] MEDS: IPRATROPIUM BROM 0.5 MG/2.5ML INH SOL NEB SCH ×4 (06:40→23:17)
[2020-04-09] MEDS: BUDESONIDE (INHALATION) 0.5 MG/2 ML NEB NEB SCH ×2 (06:41→20:10)
[2020-04-09] MEDS: ALBUTEROL SULF 2.5 MG/0.5ML(0.5%) NEB SOLN NEB SCH ×4 (06:41→23:17)
[2020-04-09 08:30] VITALS: BP 148/88
[2020-04-09 09:00] VITALS: BP 148/88
[2020-04-09] MEDS: FAMOTIDINE 20 MG TAB PO SCH (09:09)
[2020-04-09] MEDS: Ensure Enlive Strawberry 8oz Bottle PO SCH ×3 (09:09→18:30)
[2020-04-09] MEDS: POTASSIUM CHL 20 Meq TABLET PO SCH (09:09)
[2020-04-09 09:32] LABS: Basophils # (auto) 0 10 ^3/uL (0-0.2); Basophils % (auto) 0.1 % (0.0-2.0); Eosinophils # (auto) 0 10 ^3/uL (0-0.8); Hematocrit 34.6 % (41.0-53.0); Hemoglobin 11.3 g/dL (13.5-17.5); Lymphocytes # (auto) 1.1 10 ^3/uL (0.4-5.4); Lymphocytes % (auto) 7.6 % (10.0-50.0); Mean Corpuscular Hemoglobin 29.3 pg (28.0-32.0); Mean Corpuscular Hgb Conc. 32.7 g/dL (32.0-36.0); Mean Corpuscular Volume 89.7 fL (80.0-100.0); Monocytes % (auto) 6.7 % (0.0-12.0); Neutrophils # (auto) 12.7 10 ^3/uL (1.6-8.6); Neutrophils % (auto) 85.6 % (37.0-80.0); Nucleated Red Blood Cells % 0.1 %; Platelet Count (auto) 158 10^3/uL (140-450); Red Blood Cells 3.85 10^6/uL (4.5-5.90); Red Cell Distribution Width 16.1 % (11.8-14.3); White Blood Cell 14.9 10^3/uL (4.4-10.8)
[2020-04-09 10:36] LABS: Albumin 1.6 g/dL (3.4-5.0); BUN/Creatinine Ratio 20.8; Bilirubin, Total 0.8 mg/dL (0.2-1.0); Calcium 8.1 mg/dL (8.5-10.1); Total Protein 5.6 g/dL (6.4-8.2)
[2020-04-09 12:00] VITALS: BP 107/71
[2020-04-09] MEDS: HYDROcodone-ACET 5/325MG TAB PO PRN (12:47)
[2020-04-09 16:30] VITALS: BP 110/69
[2020-04-09 22:00] VITALS: BP 123/77
[2020-04-10] MEDS: PIPERACILLIN-TAZOB 3.375GM 100 ML IV SCH ×3 (06:00→13:05)
[2020-04-10] MEDS: IPRATROPIUM BROM 0.5 MG/2.5ML INH SOL NEB SCH ×4 (07:25→23:22)
[2020-04-10] MEDS: ALBUTEROL SULF 2.5 MG/0.5ML(0.5%) NEB SOLN NEB SCH ×4 (07:26→23:22)
[2020-04-10 07:50] LABS: Basophils # (auto) 0 10 ^3/uL (0-0.2); Eosinophils # (auto) 0 10 ^3/uL (0-0.8); Hematocrit 30.2 % (41.0-53.0); Hemoglobin 9.8 g/dL (13.5-17.5); Lymphocytes # (auto) 2.4 10 ^3/uL (0.4-5.4); Lymphocytes % (auto) 16.8 % (10.0-50.0); Mean Corpuscular Hemoglobin 29.3 pg (28.0-32.0); Mean Corpuscular Hgb Conc. 32.3 g/dL (32.0-36.0); Mean Corpuscular Volume 90.7 fL (80.0-100.0); Monocytes % (auto) 6.9 % (0.0-12.0); Neutrophils # (auto) 10.9 10 ^3/uL (1.6-8.6); Neutrophils % (auto) 76.3 % (37.0-80.0); Nucleated Red Blood Cells % 0.1 %; Platelet Count (auto) 124 10^3/uL (140-450); Red Blood Cells 3.33 10^6/uL (4.5-5.90); Red Cell Distribution Width 17.2 % (11.8-14.3); White Blood Cell 14.2 10^3/uL (4.4-10.8)
[2020-04-10 08:05] VITALS: BP 125/86
[2020-04-10] MEDS: Ensure Enlive Strawberry 8oz Bottle PO SCH ×3 (08:05→18:10)
[2020-04-10] MEDS: VANCOMYCIN 750mg/250ml 250 ML IV SCH (08:05)
[2020-04-10 09:00] VITALS: BP 125/86
[2020-04-10] MEDS: POTASSIUM CHL 20 Meq TABLET PO SCH (09:25)
[2020-04-10] MEDS: FAMOTIDINE 20 MG TAB PO SCH (09:25)
[2020-04-10] MEDS: BUDESONIDE (INHALATION) 0.5 MG/2 ML NEB NEB SCH ×2 (11:32→19:11)
[2020-04-10 13:00] VITALS: BP 120/76
[2020-04-10 17:21] VITALS: BP 148/94
[2020-04-10] MEDS: CLINDAMYCIN HCL 150 MG CAP PO SCH (21:41)
[2020-04-10 22:00] VITALS: BP 134/83
[2020-04-10] MEDS ORDERED: VANCOMYCIN 750mg/250ml 250 ML IV SCH (22:00)
[2020-04-11 05:03] VITALS: BP 133/71
[2020-04-11] MEDS: CLINDAMYCIN HCL 150 MG CAP PO SCH ×3 (05:58→23:38)
[2020-04-11 06:50] LABS: Basophils # (auto) 0 10 ^3/uL (0-0.2); Basophils % (auto) 0.1 % (0.0-2.0); Eosinophils # (auto) 0.1 10 ^3/uL (0-0.8); Eosinophils % (auto) 1.1 % (0.0-7.0); Hemoglobin 10.2 g/dL (13.5-17.5); Lymphocytes # (auto) 2.8 10 ^3/uL (0.4-5.4); Lymphocytes % (auto) 21.9 % (10.0-50.0); Mean Corpuscular Hemoglobin 29.2 pg (28.0-32.0); Mean Corpuscular Hgb Conc. 31.9 g/dL (32.0-36.0); Mean Corpuscular Volume 91.4 fL (80.0-100.0); Monocytes % (auto) 8.3 % (0.0-12.0); Neutrophils # (auto) 8.7 10 ^3/uL (1.6-8.6); Neutrophils % (auto) 68.6 % (37.0-80.0); Nucleated Red Blood Cells % 0.1 %; Platelet Count (auto) 121 10^3/uL (140-450); Red Cell Distribution Width 16.7 % (11.8-14.3); White Blood Cell 12.6 10^3/uL (4.4-10.8)
[2020-04-11] MEDS: IPRATROPIUM BROM 0.5 MG/2.5ML INH SOL NEB SCH ×2 (07:36→12:08)
[2020-04-11] MEDS: ALBUTEROL SULF 2.5 MG/0.5ML(0.5%) NEB SOLN NEB SCH ×2 (07:36→12:08)
[2020-04-11] MEDS: BUDESONIDE (INHALATION) 0.5 MG/2 ML NEB NEB SCH ×2 (07:36→22:44)
[2020-04-11 08:00] VITALS: BP 150/97
[2020-04-11] MEDS: Ensure Enlive Strawberry 8oz Bottle PO SCH ×3 (08:00→18:00)
[2020-04-11 09:00] VITALS: BP 150/97
[2020-04-11] MEDS: FAMOTIDINE 20 MG TAB PO SCH (10:49)
[2020-04-11] MEDS: POTASSIUM CHL 20 Meq TABLET PO SCH (10:49)
[2020-04-11 13:00] VITALS: BP 137/72
[2020-04-11 16:49] VITALS: BP 140/87
[2020-04-11] MEDS ORDERED: ALBUTEROL SULF 2.5 MG/0.5ML(0.5%) NEB SOLN NEB SCH (20:00)
[2020-04-11 22:00] VITALS: BP 137/85
[2020-04-11] MEDS ORDERED: IPRATROPIUM BROM 0.5 MG/2.5ML INH SOL NEB SCH (22:00)
[2020-04-12] VITALS (7 sets, daily range): BP systolic 107–137; BP diastolic 71–85
[2020-04-12] MEDS: CLINDAMYCIN HCL 150 MG CAP PO SCH ×3 (05:53→23:45)
[2020-04-12] MEDS: Ensure Enlive Strawberry 8oz Bottle PO SCH ×3 (08:20→18:44)
[2020-04-12] MEDS: APIXABAN 5 MG TAB PO SCH ×2 (10:30→23:46)
[2020-04-12] MEDS: POTASSIUM CHL 20 Meq TABLET PO SCH (10:44)
[2020-04-12] MEDS: FAMOTIDINE 20 MG TAB PO SCH (10:45)
[2020-04-12] MEDS: HYDROcodone-ACET 5/325MG TAB PO PRN (23:46)
[2020-04-13 05:40] VITALS: BP 115/79
[2020-04-13] MEDS: CLINDAMYCIN HCL 150 MG CAP PO SCH ×3 (06:06→23:20)
[2020-04-13] MEDS: Ensure Enlive Strawberry 8oz Bottle PO SCH ×3 (08:22→17:44)
[2020-04-13 09:00] VITALS: BP 144/93
[2020-04-13] MEDS: APIXABAN 5 MG TAB PO SCH ×2 (09:30→23:20)
[2020-04-13] MEDS: FAMOTIDINE 20 MG TAB PO SCH (09:31)
[2020-04-13] MEDS: POTASSIUM CHL 20 Meq TABLET PO SCH (09:31)
[2020-04-13 12:34] VITALS: BP 126/76
[2020-04-13 17:02] VITALS: BP 138/81
[2020-04-13 22:00] VITALS: BP 135/97
[2020-04-13] MEDS: HYDROcodone-ACET 5/325MG TAB PO PRN (23:21)
[2020-04-14 05:00] VITALS: BP 144/91
[2020-04-14] MEDS: CLINDAMYCIN HCL 150 MG CAP PO SCH ×3 (06:50→23:12)
[2020-04-14 09:00] VITALS: BP 132/79
[2020-04-14] MEDS: Ensure Enlive Strawberry 8oz Bottle PO SCH ×3 (09:33→17:22)
[2020-04-14] MEDS: FAMOTIDINE 20 MG TAB PO SCH (10:19)
[2020-04-14] MEDS: POTASSIUM CHL 20 Meq TABLET PO SCH (10:19)
[2020-04-14] MEDS: APIXABAN 5 MG TAB PO SCH ×2 (10:19→23:13)
[2020-04-14 13:00] VITALS: BP 121/82
[2020-04-14 17:00] VITALS: BP 126/88
[2020-04-14 22:00] VITALS: BP 118/79
[2020-04-15 05:00] VITALS: BP 98/72
[2020-04-15] MEDS: CLINDAMYCIN HCL 150 MG CAP PO SCH ×2 (06:07→14:00)
[2020-04-15] MEDS: IPRATROPIUM BROM 0.5 MG/2.5ML INH SOL NEB PRN ×2 (06:22→14:05)
[2020-04-15] MEDS: ALBUTEROL SULF 2.5 MG/0.5ML(0.5%) NEB SOLN NEB PRN ×2 (06:22→14:05)
[2020-04-15] MEDS: Ensure Enlive Strawberry 8oz Bottle PO SCH ×2 (08:00→12:00)
[2020-04-15 09:00] VITALS: BP 113/85
[2020-04-15] MEDS: APIXABAN 5 MG TAB PO SCH (10:00)
[2020-04-15 11:07] LABS: Basophils # (auto) 0.1 10 ^3/uL (0-0.2); Basophils % (auto) 0.4 % (0.0-2.0); Eosinophils # (auto) 0.1 10 ^3/uL (0-0.8); Eosinophils % (auto) 0.6 % (0.0-7.0); Hematocrit 35.2 % (41.0-53.0); Hemoglobin 11.4 g/dL (13.5-17.5); Lymphocytes # (auto) 3.9 10 ^3/uL (0.4-5.4); Lymphocytes % (auto) 26.8 % (10.0-50.0); Mean Corpuscular Hemoglobin 29.5 pg (28.0-32.0); Mean Corpuscular Hgb Conc. 32.2 g/dL (32.0-36.0); Mean Corpuscular Volume 91.4 fL (80.0-100.0); Monocytes # (auto) 1.3 10 ^3/uL (0-1.3); Monocytes % (auto) 8.8 % (0.0-12.0); Neutrophils # (auto) 9.3 10 ^3/uL (1.6-8.6); Neutrophils % (auto) 63.4 % (37.0-80.0); Nucleated Red Blood Cells % 0.1 %; Platelet Count (auto) 218 10^3/uL (140-450); Red Blood Cells 3.86 10^6/uL (4.5-5.90); Red Cell Distribution Width 18.1 % (11.8-14.3); White Blood Cell 14.6 10^3/uL (4.4-10.8)
[2020-04-15 11:21] LABS: Calcium 8.5 mg/dL (8.5-10.1); Potassium 4.3 mmol/L (3.5-5.1)
[2020-04-15 11:22] LABS: BUN/Creatinine Ratio 25.8
[2020-04-15 13:00] VITALS: BP 136/88
[2020-04-15 17:00] VITALS: BP 117/88
== END 2020-04-15 21:50 | disposition hospice, home (50) | DRG 710 ==
LOC: ER 12:16 → EDBD 12:16 → TELE 18:44 → TELE-WESTW 04-04 23:32 → WEST WING 04-15 00:50 → TELE-CENTR 04-15 21:36
PROVIDERS: ADMIT Nurse Practitioner Acute Care; ATTEND Internal Medicine
PROC: 0Y6J0Z3 Detachment at Left Lower Leg, Low, Open Approach (ICD-10-PCS; principal; 2020-04-08 11:13)
DX: A41.9 Sepsis, unspecified organism (principal); I21.A1 Myocardial infarction type 2; J18.9 Pneumonia, unspecified organism; I70.262 Atherosclerosis of native arteries of extremities with gangrene, left leg; E43 Unspecified severe protein-calorie malnutrition; Z66 Do not resuscitate; Z51.5 Encounter for palliative care; D72.829 Elevated white blood cell count, unspecified; D68.59 Other primary thrombophilia; D69.6 Thrombocytopenia, unspecified; E87.6 Hypokalemia; I27.21 Secondary pulmonary arterial hypertension; I10 Essential (primary) hypertension; Z20.828 Contact with and (suspected) exposure to other viral communicable diseases; F17.210 Nicotine dependence, cigarettes, uncomplicated; R65.20 Severe sepsis without septic shock; Z79.01 Long term (current) use of anticoagulants; Z86.718 Personal history of other venous thrombosis and embolism; Z89.512 Acquired absence of left leg below knee; I70.0 Atherosclerosis of aorta; F10.20 Alcohol dependence, uncomplicated; Z86.711 Personal history of pulmonary embolism; J44.0 Chronic obstructive pulmonary disease with (acute) lower respiratory infection
CPT/HCPCS: 36415; 70450; 71045; 73700; 80048; 80053; 80202; 82565; 82728; 83605; 83615; 83735; 83880; 84100; 84484; 85025; 85379; 85610; 85730; 86141; 86850; 86900; 86901; 87040; 87081; 87426; 93926; 94640; 96365; 96366; 97110; 97163; 97530; G0378; J1100; J2250; J2543; J2704; J3490